=== PATIENT | male | born 1960 | race Caucasian/White ===

== ENCOUNTER 2020-11-06 15:37 | Outpatient (CLI) | payer BC | END 2020-11-06 15:38 | disposition home or self-care (01) | LOC: RT 15:37 | PROVIDERS: ATTEND Internal Medicine Cardiovascular Disease | DX: I48.19 Other persistent atrial fibrillation (principal) | CPT/HCPCS: 93005 ==

== ENCOUNTER 2020-12-22 07:55 | Outpatient (CLI) | payer BC | END 2020-12-22 07:56 | disposition home or self-care (01) | LOC: DI 07:55 | PROVIDERS: ATTEND Internal Medicine Cardiovascular Disease | DX: I48.19 Other persistent atrial fibrillation (principal); I50.22 Chronic systolic (congestive) heart failure | CPT/HCPCS: 93005; 93306 ==

== ENCOUNTER 2022-12-12 10:46 | Outpatient (CLI) | payer BC | END 2022-12-12 10:47 | disposition home or self-care (01) | LOC: LAB 10:46 | DX: Z79.01 Long term (current) use of anticoagulants (principal); I48.19 Other persistent atrial fibrillation | CPT/HCPCS: 36416; 85610 ==

== ENCOUNTER 2023-01-31 11:33 | Outpatient (CLI) | payer BC | END 2023-01-31 11:34 | disposition home or self-care (01) | LOC: LAB 11:33 | PROVIDERS: ATTEND Family Medicine | DX: Z79.01 Long term (current) use of anticoagulants (principal); I48.19 Other persistent atrial fibrillation | CPT/HCPCS: 36416; 85610 ==

== ENCOUNTER 2023-04-16 11:28 | Outpatient (CLI) | payer BC | END 2023-04-16 11:29 | disposition home or self-care (01) | LOC: LAB 11:28 | PROVIDERS: ATTEND Family Medicine | DX: I48.19 Other persistent atrial fibrillation (principal); Z79.01 Long term (current) use of anticoagulants | CPT/HCPCS: 36416; 85610 ==

== ENCOUNTER 2023-07-17 12:14 | Outpatient (CLI) | payer BC | END 2023-07-17 12:15 | disposition home or self-care (01) | LOC: LAB 12:14 | PROVIDERS: ATTEND Family Medicine | DX: Z79.01 Long term (current) use of anticoagulants (principal); I48.19 Other persistent atrial fibrillation | CPT/HCPCS: 36416; 85610 ==

== ENCOUNTER 2023-10-31 14:53 | Outpatient (CLI) | payer BC | END 2023-10-31 14:54 | disposition home or self-care (01) | LOC: LAB 14:53 | PROVIDERS: ATTEND Family Medicine | DX: I48.19 Other persistent atrial fibrillation (principal); Z79.01 Long term (current) use of anticoagulants | CPT/HCPCS: 36416; 85610 ==

== ENCOUNTER 2024-04-14 14:19 | Outpatient (CLI) | payer BC | END 2024-04-14 14:20 | disposition home or self-care (01) | LOC: LAB 14:19 | PROVIDERS: ATTEND Family Medicine | DX: I48.19 Other persistent atrial fibrillation (principal); Z79.01 Long term (current) use of anticoagulants | CPT/HCPCS: 36416; 85610 ==

== ENCOUNTER 2024-06-07 15:52 | Outpatient (CLI) | payer BC | END 2024-06-07 15:53 | disposition home or self-care (01) | LOC: LAB 15:52 | PROVIDERS: ATTEND Family Medicine | DX: I48.19 Other persistent atrial fibrillation (principal); Z79.01 Long term (current) use of anticoagulants | CPT/HCPCS: 36416; 85610 ==

== ENCOUNTER 2024-07-07 12:29 | Outpatient (CLI) | payer BC | END 2024-07-07 12:30 | disposition home or self-care (01) | LOC: LAB 12:29 | PROVIDERS: ATTEND Family Medicine | DX: Z79.01 Long term (current) use of anticoagulants (principal); I48.19 Other persistent atrial fibrillation | CPT/HCPCS: 36416; 85610 ==